=== PATIENT | female | born 1960 | race Caucasian/White ===

== ENCOUNTER 2018-05-11 23:28 | Emergency (ER) | payer MEDICAID, OTHER ==
[2018-05-12 00:04] VITALS: BMI 26.4
[2018-05-12 00:53] LABS: PH,URINE 6.5 (4.7-8.0); URINE BILIRUBIN NEGATIVE (NEGATIVE); URINE BLOOD NEGATIVE (NEGATIVE); URINE GLUCOSE (UA) NEGATIVE (NEGATIVE); URINE LEUKOCYTE ESTERASE SMALL Leu/uL (NEGATIVE); URINE PROTEIN NEGATIVE mg/dL (<30 mg/dL); URINE UROBILINOGEN 0.2 E.U./dL (<1 E.U./dL)
[2018-05-12 01:00] LABS: URINE APPEARANCE CLEAR (CLEAR)
[2018-05-12] MEDS ORDERED: cefTRIAXone (Rocephin) 250 mg Inj IM STA (01:00)
[2018-05-12 01:01] LABS: URINE COLOR YELLOW (YELLOW)
[2018-05-12 01:03] LABS: URINE RBC 0 - 2 /hpf (0-2)
--- NOTE | 2018-05-12 01:08 | ED PDOC ---
Arrival/HPI - General Historian: Patient - History of Present Illness Narrative History of Present Illness (Text): 05/12/18 01:04 58-year-old female presents today with a 4-day history of dysuria and burning sensation to the vagina. Patient states she has been sexually active with the same partner for the past 10 years. She denies any vaginal discharge or vaginal bleeding. Patient states she was seen by her primary care physician and was given a vaginal cream as well as penicillin antibiotic. Patient states symptoms are not improving. She denies abdominal pain. No nausea vomiting diarrhea constipation. No chest pain or shortness of breath. She denies fevers or chi lls. No other complaints <Rolanda Hoffman - Last Filed: 05/12/18 01:04> <Sam Farias - Last Filed: 05/12/18 04:18> - General Chief Complaint: Female Genitourinary Time Seen by Provider: 05/12/18 00:12 Past Medical History - Provider Review Nursing Documentation Reviewed: Yes - Travel History Have you recently traveled outside [place] w/in the past 3 mons?: No - Cardiac Hx Cardiac Disorders: Yes Hx Hypertension: Yes - Pulmonary Hx Respiratory Disorders: Yes Hx Asthma: Yes - Neurological Hx Neurological Disorder: No - HEENT Hx HEENT Disorder: No - Renal Hx Renal Disorder: No - Endocrine/Metabolic Hx Endocrine Disorders: No - Hematological/Oncological Hx Blood Disorders: No - Integumentary Hx Dermatological Disorder: No - Musculoskeletal/Rheumatological Hx Musculoskeletal Disorders: Yes Hx Arthritis: Yes Hx Herniated Disk: Yes Other/Comment: CERVICAL PINCH NERVE - Gastrointestinal Hx Gastrointestinal Disorders: Yes Hx Gastritis: Yes - Genitourinary/Gynecological Hx Genitourinary Disorders: No - Psychiatric Hx Psychophysiologic Disorder: Yes Hx Anxiety: Yes Hx Depression: Yes Hx Panic Disorder: Yes Hx Substance Use: No - Surgical History Hx Breast Biopsy: Yes (RIGHT) Hx Section: Yes (3 C SECTION) Hx Hysterectomy: Yes - Anesthesia Hx Anesthesia: Yes Hx Anesthesia Reactions: No Hx Malignant Hyperthermia: No - Suicidal Assessment Feels Threatened In Home Enviroment: No <Rolanda Hoffman - Last Filed: 05/12/18 01:04> Family/Social History - Physician Review Nursing Documentation Reviewed: Yes Family/Social History: Unknown Family HX Smoking Status: Never Smoked Hx Alcohol Use: No Hx Substance Use: No <Rolanda Hoffman - Last Filed: 05/12/18 01:04> Allergies/Home Meds <Rolanda Hoffman Pedro - Last Filed: 05/12/18 01:04> <Sam Farias - Last Filed: 05/12/18 04:18> Allergies/Adverse Reactions: Allergies No Known Allergies Allergy (Verified 05/12/18 00:03) Home Medications: Home Meds Medication Instructions Recorded Confirmed Montelukast [Singulair] 10 mg PO DAILY 03/28/14 08/08/15 amLODIPine [Norvasc] 5 mg PO DAILY 03/28/14 08/08/15 Review of Systems - Review of Systems Constitutional: absent: Fatigue, Fevers Respiratory: absent: SOB, Cough Cardiovascular: absent: Chest Pain, Palpitations Gastrointestinal: absent: Abdominal Pain, Constipation, Diarrhea, Nausea, Vomiting Genitourinary Female: Dysuria. absent: Frequency, Hematuria, Urine Output Changes, Vaginal Bleeding, Vaginal Discharge Musculoskeletal: absent: Arthralgias, Back Pain, Neck Pain Skin: absent: Rash, Pruritis Neurological: absent: Headache, Dizziness Psychiatric: absent: Anxiety, Depression <Rolanda Hoffman Pedro - Last Filed: 05/12/18 01:04> Physical Exam Vital Signs Reviewed: Yes Vital Signs Temp Pulse Resp BP Pulse Ox 05/12/18 00:04 98.4 F 75 18 156/90 H 97 Temperature: Afebrile Blood Pressure: Hypertensive Pulse: Regular Respiratory Rate: Normal Appearance: Positive for: Well-Appearing, Non-Toxic, Comfortable Pain Distress: None Mental Status: Positive for: Alert and Oriented X 3 - Systems Exam Head: Present: Atraumatic Mouth: Present: Moist Mucous Membranes Neck: Present: Normal Range of Motion Respiratory/Chest: Present: Clear to Auscultation, Good Air Exchange. No: Respiratory Distress, Accessory Muscle Use Cardiovascular: Present: Regular Rate and Rhythm Abdomen: No: Tenderness, Distention, Rebound, Guarding Genitourinary/Pelvic Exam: Present: Normal External Genitalia, Vaginal Discharge (slight white vaginal discharge noted), Other (chaparoned by Aicha fields RN). No: Vaginal Bleeding, Vaginal Lesions Back: Present: Normal Inspection. No: CVA Tenderness, Midline Tenderness, Paraspinal Tenderness Upper Extremity: Present: Normal ROM Lower Extremity: Present: Normal ROM Neurological: Present: GCS=15, Speech Normal Skin: Present: Warm, Dry, Normal Color. No: Rashes Psychiatric: Present: Alert, Oriented x 3 <Rolanda Hoffman - Last Filed: 05/12/18 01:04> Vital Signs Temp Pulse Resp BP Pulse Ox 05/12/18 00:10 98.4 F 76 20 142/78 98 05/12/18 00:04 98.4 F 75 18 156/90 H 97 <Sam Farias - Last Filed: 05/12/18 04:18> Medical Decision Making ED Course and Treatment: 05/12/18 01:17 58-year-old female nontoxic well-appearing no distress with stable vital signs complaining of vaginal irritation and dysuria times 4 days. pt has been on pcn and vaginal cream. UA: Positive trace leukocytes Gonorrhea and Chlamydia cultures are pending Patient treated with Rocephin and Zithromax Patient reassessment: Patient nontoxic well-appearing no distress with stable vi az signs I discussed all results in depth advised patient to take medications as prescribed and follow-up with a upholstery mechanic within the next 2 days. Advised me to return if symptoms worsen persist or if new concerning symptoms develop Patient verbalizes understanding of discharge instructions and need for immediate followup. All aspects of this case were discussed the attending of record. Impression: Dysuria, vaginal discharge Macrobid 1 tablet twice daily times 7 days Increase fluids flagyl; 1 tablet twice daily x 7 days. follow up with the primary care physician within the next 2 days. follow up with the WEAPONS ENGINEER within the next 2 days. Return immediately if symptoms worsen,persist or if new symptoms develop. Reassessment Condition: Re-examined, Improved - Lab Interpretations Lab Results: Urine Color Yellow (YELLOW) 05/12/18 00:40 Urine Appearance Clear (CLEAR) 05/12/18 00:40 Urine pH 6.5 (4.7-8.0) 05/12/18 00:40 Ur Specific [place] 1.010 (1.005-1.035) 05/12/18 00:40 Urine Protein Negative mg/dL (<30 mg/dL) 05/12/18 00:40 Urine Glucose (UA) Negative mg/dL (NEGATIVE) 05/12/18 00:40 Urine Ketones Negative mg/dL (NEGATIVE) 05/12/18 00:40 Urine Blood Negative (NEGATIVE) 05/12/18 00:40 Urine Nitrate Negative (NEGATIVE) 05/12/18 00:40 Urine Bilirubin Negative (NEGATIVE) 05/12/18 00:40 Urine Urobilinogen 0.2 E.U./dL (<1 E.U./dL) 05/12/18 00:40 Ur Leukocyte Esterase Small Brenad[place]/uL (NEGATIVE) H 05/12/18 00:40 Urine RBC 0 - 2 /hpf (0-2) 05/12/18 00:40 Urine WBC 1 - 3 /hpf (0-6) 05/12/18 00:40 Ur Epithelial Cells 3 - 4 /hpf (0-5) 05/12/18 00:40 Urine Bacteria None /hpf (NONE) 05/12/18 00:40 - Medication Orders Current Medication Orders: Azithromycin (Zithromax) 1,000 mg PO STAT STA; Protocol Stop: 05/12/18 01:01 Ceftriaxone Sodium (Rocephin) 250 mg IM STAT STA; Protocol Stop: 05/12/18 01:01 <Rolanda Hoffman T - Last Filed: 05/12/18 01:04> - Lab Interpretations Lab Results: Urine Color Yellow (YELLOW) 05/12/18 00:40 Urine Appearance Clear (CLEAR) 05/12/18 00:40 Urine pH 6.5 (4.7-8.0) 05/12/18 00:40 Ur Specific [place] 1.010 (1.005-1.035) 05/12/18 00:40 Urine Protein Negative mg/dL (<30 mg/dL) 05/12/18 00:40 Urine Glucose (UA) Negative mg/dL (NEGATIVE) 05/12/18 00:40 Urine Ketones Negative mg/dL (NEGATIVE) 05/12/18 00:40 Urine Blood Negative (NEGATIVE) 05/12/18 00:40 Urine Nitrate Negative (NEGATIVE) 05/12/18 00:40 Urine Bilirubin Negative (NEGATIVE) 05/12/18 00:40 Urine Urobilinogen 0.2 E.U./dL (<1 E.U./dL) 05/12/18 00:40 Ur Leukocyte Esterase Small [place]/uL (NEGATIVE) H 05/12/18 00:40 Urine RBC 0 - 2 /hpf (0-2) 05/12/18 00:40 Urine WBC 1 - 3 /hpf (0-6) 05/12/18 00:40 Ur Epithelial Cells 3 - 4 /hpf (0-5) 05/12/18 00:40 Urine Bacteria None /hpf (NONE) 05/12/18 00:40 - Medication Orders Current Medication Orders: Discontinued Medications Azithromycin (Zithromax) 1,000 mg PO STAT STA; Protocol Stop: 05/12/18 01:01 Last Admin: 05/12/18 01:48 Dose: 1,000 mg Ceftriaxone Sodium (Rocephin) 250 mg IM STAT STA; Protocol Stop: 05/12/18 01:01 Last Admin: 05/12/18 01:47 Dose: 250 mg IM Administration Charges Document 05/12/18 01:47 RE (Rec: 05/12/18 01:47 RE [facility] [place]ER-20) Injection Site MAR Injection Site Left Gluteus Medius Charges for Administration # of IM Administrations 1 <Sam Farias - Last Filed: 05/12/18 04:18> - PA / CV RN / Resident Statement / has reviewed & agrees with the documentation as recorded. <Sam Farias - Last Filed: 05/12/18 04:18> Disposition/Present on Arrival - Present on Arrival Any Indicators Present on Arrival: No History of DVT/PE: No History of Uncontrolled Diabetes: No Urinary Catheter: No History of Decub. Ulcer: No History Surgical Site Infection Following: None - Disposition Have Diagnosis and Disposition been Completed?: Yes Disposition Time: 01:22 Patient Plan: Discharge <Rolanda Hoffman - Last Filed: 05/12/18 01:04> <Sam Farias - Last Filed: 05/12/18 04:18> - Disposition Diagnosis: Dysuria, Vaginal discharge Disposition: HOME/ ROUTINE Condition: GOOD Discharge Instructions (ExitCare): Dysuria, Adult (DC), Vaginal Discharge in Adults Additional Instructions: Macrobid 1 tablet twice daily times 7 days Increase fluids flagyl; 1 tablet twice daily x 7 days. follow up with the primary care physician within the next 2 days. follow up with the WEAPONS ENGINEER within the next 2 days. Return immediately if symptoms worsen,persist or if new symptoms develop. Prescriptions: metroNIDAZOLE [Flagyl] 500 mg PO BID #14 tab Nitrofurantoin Macrocrystals [Macrobid] 100 mg PO BID #14 cap Referrals: Freeman Bob MD [Primary Care Provider] - Follow up with primary Johnathon Wolfe MD [Staff Provider] - Follow up with primary Sri Osuna MD [Medical Doctor] - Follow up with primary [facility] [Outside] - [facility] with [facility] [[facility]] - Follow up with primary Forms: [employer] ([employer]), WORK NOTE
[2018-05-12 02:01] VITALS: O2SAT 98
[2018-05-12 05:14] VITALS: BP 108/66; PULSE 72; RESP 18; TEMP 97.8
== END 2018-05-12 01:55 | disposition home or self-care (01) ==
LOC: ED 23:28
DX: R30.0 Dysuria (principal); N89.8 Other specified noninflammatory disorders of vagina
CPT/HCPCS: 81001; 87086; 87491; 87591; 96372; 99284; J0696